=== PATIENT | female | born 1965 | race Caucasian/White ===

== ENCOUNTER → 2018-03-28 | Outpatient (CLI) | payer OTHER | LOC: FIMAGING 09:44 | DX: Z13.820 Encounter for screening for osteoporosis (principal); Z78.0 Asymptomatic menopausal state ==

== ENCOUNTER 2018-08-19 03:56 | Emergency (ER) | payer OTHER ==
[2018-08-19] MEDS ORDERED: METOCLOPRAMIDE 10 MG/2 ML VIAL IVP ONE (04:38)
[2018-08-19] MEDS ORDERED: METOCLOPRAMIDE 10 MG/2 ML VIAL ONE (04:39)
[2018-08-19] MEDS ORDERED: NS 1,000 ML IV ONE (04:40)
--- NOTE | 2018-08-19 04:50 | EDPHY ---
H & P Stated Complaint: c/o Migraine MASSEY since Sat. - went to [facility], then back that night Time Seen by Provider: 08/19/18 04:15 HPI/ROS: CC: migraine headache HPI: This 53 year old female with past medical history of migraines "all her life" presents to the emergency department tonight with her for a migraine that has been ongoing for about 3 days now. It came on gradually but her Imitrex did not work. She also took a leftover hydromorphone which was prescribed to her after her hysterectomy 3 years ago. This did not help her headache. However it did cause mild constipation. She was unable to sleep. The next day the migraine headache progressed to an 8/10. The headache was on the right side of her forehead behind her eye when usually it is on the left side. She had nausea and vomiting and right-sided sinus pain but denies recent illness. She also had a runny nose. Light makes the headache worse. She went to the Urgent Care in [place] the next day where they gave her Toradol, Reglan , Benadryl, and Decadron. Her migraine was reduced to 4/10 when she left the urgent care. However, she was unable to sleep and at 2:00 a.m. this morning her migraine had progressed back up to a 9/10. She has nausea without vomiting. She denies changes in her vision, sore throat, chest pain, cough, shortness of breath, abdominal pain, dysuria, dizziness, numbness, tingling, or weakness. She has not been ill recently and has not had a fever or a rash. She has pain on the right side of her neck but she does not have a stiff neck. She denies being exposed to anyone with an illness and has not been on any recent trips. She states this is a usual headache for her except for the fact that it is on the right side of her head instead of the left side of her head. She had an MRI and a CT scan of her head in the past a couple of years ago which were both negative. REVIEW OF SYSTEMS: Constitutional: No fever, no chills. Eyes: No discharge. ENT: No sore throat. Respiratory: No cough, no shortness of breath. Cardiac: No chest pain, no palpitations. Gastrointestinal: No abdominal pain, no vomiting. +constipation. Genitourinary: No dysuria. Musculoskeletal: No back pain. +right sided neck pain. Skin: No rashes. Neurological: See HPI. Source: Patient, Family Exam Limitations: No limitations - Personal History LMP (Females 10-55): Hysterectomy Current Tetanus Diphtheria and Acellular Pertussis (TDAP): Yes - Medical/Surgical History PMH: PMH: Migraines PSH: FREDA w/BSO FH: Father - Stroke; GM - DM; NKDA Meds: Imitrex, Zofran PCP - Dr. Abimael Bateman Hx Asthma: No Hx Chronic Respiratory Disease: No Hx Diabetes: No Hx Cardiac Disease: No Hx Renal Disease: No Hx Cirrhosis: No Hx Alcoholism: No Hx HIV/AIDS: No Hx Splenectomy or Spleen Trauma: No Other PMH: hyst/MIGRAINES - Family History Significant Family History: Diabetes, Vascular disease - Social History Smoking Status: Former smoker Alcohol Use: Occasionally Drug Use: None Additional Social History: Social: . No tobacco products, 3 ETOH beverages per week, no recreational drug use. - Physical Exam Exam: General Appearance: Alert, moderate distress. Eyes: Pupils equal and round no pallor or injection. No papilledema. ENT, Mouth: Mucous membranes are moist. No erythema or exudate. Respiratory: There are no retractions, lungs are clear to auscultation. Cardiovascular: Regular rate and rhythm. Murmur, gallops, or rubs. Gastrointestinal: Abdomen is soft and nontender, no masses, bowel sounds normal. Neurological: Awake and alert, CN II-XII GI, Strength 5/5 x 4, normal tone, normal sensation to light touch, no pronator drift, normal mental status. Skin: Warm and dry, no rashes. Musculoskeletal: Neck is supple, nontender, no meningeal signs. Extremities are symmetrical, full range of motion. Psychiatric: Patient is oriented X 3, there is no agitation. DIFFERENTIAL DIAGNOSIS: After history and physical exam differential diagnosis was considered for but not limited to and in no particular order: tension headache, migraine headache, cluster headache, SAH, intracranial mass, electrolyte abnormality, infectious etiology. Constitutional: Initial Vital Signs Temperature (C) 99 F 08/19/18 04:03 Heart Rate 74 08/19/18 04:03 Respiratory Rate 18 08/19/18 04:03 Blood Pressure 142/74 H 08/19/18 04:03 O2 Sat (%) 97 08/19/18 04:03 O2 Delivery Mode Room Air Allergies/Adverse Reactions: No Known Allergies Allergy (Verified 02/17/14 18:16) Home Medications: Medication Instructions Recorded Herbals/Supplements -Info Only 1 ea PO DAILY 04/06/15 Multivitamins [Tab-A-Kalli] 1 each PO DAILY 04/06/15 Promethazine HCl [Phenergan 25mg 25 mg PO Q4H PRN #10 tab 08/19/18 (*)] Medical Decision Making - Diagnostics Imaging Results: DECLINED BRAIN IMAGING. ED Course/Re-evaluation: The patient was seen and examined. Vital signs reviewed. Prior records reviewed. Urgent care record brought by has been reviewed. There were no signs of a neurologic emergency by history or on physical exam. An IV was placed and she was given IV fluids, morphine 2 mg IV push, Benadryl 12.5 mg IV push, and Reglan 5 mg IV push. This helped her headache immensely and she stated her pain was 0/10. She was no longer nauseated. I offered her a prescription for Phenergan for home use as her said the Zofran she had did not really work well for her nausea. I advised her to take Benadryl concurrently with the Phenergan when needed. She will follow up with her primary care provider or return to the emergency room should symptoms change or worsen as discussed. - Data Points Medications Given: Discontinued Medications Diphenhydramine HCl (Benadryl Injection) 12.5 mg IVP EDNOW ONE Stop: 08/19/18 04:39 Last Admin: 08/19/18 04:48 Dose: 12.5 mg Sodium Chloride (Ns) 1,000 mls @ 0 mls/hr IV ONCE ONE; Wide Open PRN Reason: Protocol Stop: 08/19/18 04:41 Last Admin: 08/19/18 04:47 Dose: 1,000 mls Metoclopramide HCl (Reglan Injection) 5 mg IVP EDNOW ONE Stop: 08/19/18 04:39 Last Admin: 08/19/18 04:48 Dose: 5 mg Morphine Sulfate (Morphine) 4 mg IVP EDNOW ONE Stop: 08/19/18 04:39 Last Admin: 08/19/18 04:49 Dose: 4 mg Departure - Departure Disposition: Home, Routine, Self-Care Clinical Impression: Migraine headache Qualifiers: Migraine type: chronic without aura Status migrainosus presence: without status migrainosus Intractability: not intractable Qualified Code(s): G43.709 - Chronic migraine without aura, not intractable, without status migrainosus Condition: Good Instructions: Migraine Headache (ED) Additional Instructions: Follow up with your primary care provider as needed. If you take the Phenergan (promethazine) for nausea when you have a migraine headache, take Benadryl ( diphenhydramine) concurrently as directed. Return to the ER if symptoms change or worsen as discussed. Referrals: NONE *PRIMARY CARE P,. [Primary Care Provider] - Follow Up Only If Needed ( Follow up with Dr. Abimael Bateman as needed.) Prescriptions: Promethazine HCl [Phenergan 25mg (*)] 25 mg PO Q4H PRN #10 tab PRN Reason: Nausea/Vomiting, Use 2nd
[2018-08-19 05:37] VITALS: BP 124/64
== END 2018-08-19 05:36 | disposition home or self-care (01) ==
LOC: CED 03:56
DX: G43.709 Chronic migraine without aura, not intractable, without status migrainosus (principal); Z87.891 Personal history of nicotine dependence
CPT/HCPCS: 96374; J1200; J2270; J2765